=== PATIENT | female | born 1975 | race Caucasian/White ===

== ENCOUNTER → 2021-07-07 | Outpatient (CLI) | payer OTHER ==
[~2021-07-07] MED LIST: PEPCID20 MG PO; ZYRTEC10 MG PO
== END ==
LOC: KOH-I 09:54
DX: R19.00 Intra-abdominal and pelvic swelling, mass and lump, unspecified site (principal)
CPT/HCPCS: 76705

== ENCOUNTER → 2021-10-09 | Outpatient (CLI) | payer OTHER | LOC: EXRD 10-07 13:30 | DX: R13.10 Dysphagia, unspecified (principal); R59.9 Enlarged lymph nodes, unspecified | CPT/HCPCS: 76536 ==